=== PATIENT | male | born 1970 | race Two or more races ===

== ENCOUNTER 2019-01-14 20:20 | Inpatient (IN) | payer SELFPAY ==
[~2019-01-14] VITALS: Ht 175.3 cm; Wt 101.5 kg
[2019-01-14 20:53] LABS: Basophils # (auto) 0.1 uL; Basophils % (auto) 0.5 % (0.0-2.0); Eosinophils # (auto) 0.2 uL; Eosinophils % (auto) 1.6 % (0.0-7.0); Hematocrit 50.2 % (41.0-53.0); Hemoglobin 17.2 g/dL (13.5-17.5); Lymphocytes # (auto) 1.2 uL; Lymphocytes % (auto) 12.2 % (10.0-50.0); Mean Corpuscular Hgb Conc. 34.3 g/dL (32.0-36.0); Mean Corpuscular Volume 87.4 fL (80.0-100.0); Monocytes # (auto) 0.7 uL; Monocytes % (auto) 6.7 % (0.0-12.0); Nucleated Red Blood Cells % 0.1 %; Platelet Count (auto) 241 10^3/uL (140-450); Red Blood Cells 5.75 10^6/uL (4.5-5.90); Red Cell Distribution Width 13.5 % (11.8-14.3); White Blood Cell 10.1 10^3/uL (4.4-10.8)
[2019-01-14 21:07] LABS: Alanine Aminotransferase 55 U/L (16-61); Albumin 4.3 g/dL (3.4-5.0); Anion Gap 8 (5-15); Aspartate Aminotransferase 21 U/L (15-37); BUN/Creatinine Ratio 15.3; Blood Urea Nitrogen 15 mg/dL (7-18); Calcium 8.9 mg/dL (8.5-10.1); Carbon Dioxide 29 mmol/L (21-32); Chloride 100 mmol/L (98-107); GFR African American 106 mL/min; GFR Non-African American 88 mL/min; Glucose 119 mg/dL (74-106); Lipase 95 U/L (73-393); Magnesium 2.2 mg/dL (1.6-2.6); Potassium 3.9 mmol/L (3.5-5.1); Sodium 137 mmol/L (136-145)
[2019-01-14 21:12] LABS: Alkaline Phosphatase 84 U/L (45-117); Bilirubin, Total 0.9 mg/dL (0.2-1.0); Total Protein 8.3 g/dL (6.4-8.2)
[2019-01-14 21:16] LABS: Urine Bacteria NONE SEEN /hpf (None Seen); Urine Blood TRACE /uL (Negative); Urine Mucus FEW (None Seen); Urine Specific Gravity 1.033 (1.001-1.035); Urine WBC 1 /hpf (0 - 3)
[2019-01-14] MEDS ORDERED: ONDANSETRON HCL 4 MG/2 ML VIAL IV ONE (22:30)
[2019-01-14] MEDS ORDERED: MORPHINE SULFATE 4 MG/ML SYR/VIAL IV ONE (22:30)
[2019-01-15] MEDS ORDERED: SODIUM CHLORIDE 0.9% 500 ML IV ONE (00:35)
[2019-01-15] MEDS ORDERED: ASPirin 81 mg TAB PO ONE (01:15)
[2019-01-15] MEDS ORDERED: MORPHINE SULFATE 4 MG/ML SYR/VIAL IV ONE (01:30)
[2019-01-15] MEDS ORDERED: ONDANSETRON HCL 4 MG/2 ML VIAL IV ONE (01:30)
[2019-01-15] MEDS ORDERED: ONDANSETRON HCL 4 MG/2 ML VIAL IV PRN (02:30)
[2019-01-15] MEDS: SODIUM CHLORIDE 0.9% 1,000 ML IV SCH ×2 (02:41→15:50)
[2019-01-15] MEDS ORDERED: METOPROLOL TARTRATE 1MG/1ML-5ML VIAL IV PRN (03:00)
[2019-01-15] MEDS ORDERED: ATORVASTATIN 20 MG TAB PO ONE (03:15)
[2019-01-15] MEDS ORDERED: NITROGLYCERIN 0.4 MG SL TAB SL PRN (03:15)
[2019-01-15] MEDS ORDERED: MORPHINE SULF INJ 2 MG/ML SYRINGE 1ML IV PRN (03:15)
--- NOTE | 2019-01-15 04:30 | NUR ---
Telemetry admit from [facility] admitted to Telemetry unit after SBAR received. Patient oriented to Zulema Stewart primary RN, unit, room, bed, and unit policies regarding patient care and visiting hours. Patient now on continuous telemetry monitoring, tele box # 8 and telemetry reading on arrival to unit is sinus tachycardia. Patient placed on bedside oxygen, weighed by bedscale and encouraged to call if they need something. All questions and concerns addressed, patient verbalized understanding.
[2019-01-15 04:45] VITALS: BP 126/68
[2019-01-15] MEDS: MORPHINE SULFATE 4 MG/ML SYR/VIAL IV PRN ×4 (06:14→19:29)
--- NOTE | 2019-01-15 07:05 | NUR ---
Care endorsed to Summer KAREN.
--- NOTE | 2019-01-15 07:27 | NUR ---
Opening Note Received report from production supervisor off shift RN. Patient is awake, alert and oriented x4. Patient complains of pain in his face and throat form NG tube. Patient has NG tube on suction. Patient is on 2L NC, respirations even and unlabored. Patient denies shortness of breath at this time. Reviewed plan of care with patient, patient verbalized understanding. Patient is NPO. Bed in low and locked position, call light within reach. Will continue to monitor Q1 hour and PRN.
[2019-01-15 09:01] VITALS: BP 132/84
[2019-01-15] MEDS ORDERED: GASTROGRAFIN 120 ML SOL ONE (09:08)
--- NOTE | 2019-01-15 09:10 | NUR ---
Patient taken down for small bowel series
[2019-01-15] MEDS: ASPirin 81 mg TAB NG SCH (10:00)
--- NOTE | 2019-01-15 10:50 | NUR ---
Patient back in room Patient complaining of pain 8/10 in his face and throat. Will medicate per orders.
[2019-01-15 12:43] VITALS: BP 129/77
--- NOTE | 2019-01-15 13:55 | NUR ---
qa tech at bedside
--- NOTE | 2019-01-15 14:29 | NUR ---
Password Password undated, preacher
[2019-01-15 16:34] VITALS: BP 137/81
--- NOTE | 2019-01-15 19:25 | NUR ---
Closing Note Report given to warehouse worker 2nd shift RN. Patient complains of pain 10/10 will medicate per orders.
--- NOTE | 2019-01-15 19:45 | NUR ---
Opening Shift Note Assumed care of patient, awake and alert. No S/S of distress/SOB, no complains of pain. NGT clamped at this time. Unable to assess placement due to patient not wanting NGT to be touched. Instructed on POC and to call for assist PRN, will continue to monitor for changes Q1hr and PRN.
[2019-01-15 22:00] VITALS: BP 147/81
[2019-01-15] MEDS: ATORVASTATIN 20 MG TAB NG SCH (22:00)
--- NOTE | 2019-01-15 23:00 | NUR ---
NGT still in, but noted tape to be pulled about an inch off. Patient refused for NGT to be fixed and wants it to be left alone. Care continued.
[2019-01-16] VITALS (7 sets, daily range): BP systolic 132–155; BP diastolic 75–89
[2019-01-16 05:34] LABS: Basophils # (auto) 0 uL; Basophils % (auto) 0.4 % (0.0-2.0); Eosinophils # (auto) 0.1 uL; Eosinophils % (auto) 0.9 % (0.0-7.0); Hematocrit 46.2 % (41.0-53.0); Hemoglobin 15.7 g/dL (13.5-17.5); Lymphocytes # (auto) 1.4 uL; Lymphocytes % (auto) 15.2 % (10.0-50.0); Mean Corpuscular Hemoglobin 29.9 pg (28.0-32.0); Monocytes # (auto) 0.8 uL; Monocytes % (auto) 8.4 % (0.0-12.0); Neutrophils % (auto) 75.1 % (37.0-80.0); Platelet Count (auto) 212 10^3/uL (140-450); Red Blood Cells 5.25 10^6/uL (4.5-5.90); Red Cell Distribution Width 13.3 % (11.8-14.3); White Blood Cell 9.4 10^3/uL (4.4-10.8)
[2019-01-16 05:55] LABS: Calcium 8.3 mg/dL (8.5-10.1); Potassium 3.8 mmol/L (3.5-5.1)
[2019-01-16 05:57] LABS: BUN/Creatinine Ratio 15.6
[2019-01-16] MEDS: SODIUM CHLORIDE 0.9% 1,000 ML IV SCH ×2 (06:03→16:41)
--- NOTE | 2019-01-16 06:16 | NUR ---
NGT still in the same position and patient still refuses NGT to be touched. Report will be given to oncoming RN.
[2019-01-16] MEDS: MORPHINE SULFATE 4 MG/ML SYR/VIAL IV PRN ×5 (07:21→21:43)
--- NOTE | 2019-01-16 07:30 | NUR ---
Opening Shift Note Received report from Anna JONES. Assumed care of patient, awake and alert. No S/S of distress/SOB or pain. Reported discomfort on NGT area, noticed slightly pulled out and patient doesn't want anyone to touch it. Explained that it is hurting because it's not properly placed. Patient said "do not touch it". Instructed on POC and to call for assist PRN, will continue to monitor for changes Q1hr and PRN.
--- NOTE | 2019-01-16 08:00 | NUR ---
PATIENT ABLE TO TOLERATE CLEAR LIQUID DIET FOR BREAKFAST BUT DOES NOT WAN TO ADVANCE DIET FOR NOW. WILL CONTINUE CARE.
[2019-01-16] MEDS: ASPirin 81 mg TAB NG SCH (09:39)
--- NOTE | 2019-01-16 13:50 | NUR ---
NGT removal NGT removed per MD/[employer]OW[employer] STARCHER order following explaination and instruction to patient. Patient verbalized understanding prior to removal. Patient tolerated well.
--- NOTE | 2019-01-16 19:15 | NUR ---
Opening Shift Note Assumed care of patient, awake and alert. Family at bed side. No S/S of distress/SOB or pain. Instructed on POC and to call for assist PRN, will continue to monitor PRN.
[2019-01-16] MEDS: ATORVASTATIN 20 MG TAB NG SCH (21:41)
[2019-01-17] MEDS: MORPHINE SULFATE 4 MG/ML SYR/VIAL IV PRN ×2 (04:04→21:02)
[2019-01-17 04:59] VITALS: BP 131/75
--- NOTE | 2019-01-17 05:15 | NUR ---
ROUNDS PATIENT RESTING IN BED, NO DISTRESS NOTED WITH EVEN AND ULABORED RESPIRATION, SATURATING AT 94% ON ROOM AIR. PATIENT DENIES PAIN AT THIS TIME.
[2019-01-17] MEDS: SODIUM CHLORIDE 0.9% 1,000 ML IV SCH ×2 (05:37→21:03)
--- NOTE | 2019-01-17 07:10 | NUR ---
Opening Shift Note Received report from Amira JONES. Assumed care of patient, awake and alert. No S/S of distress/SOB. Reported managed pain today. Instructed on POC and to call for assist PRN, will continue to monitor for changes Q1hr and PRN.
[2019-01-17 08:23] VITALS: BP 135/84
[2019-01-17] MEDS: ASPirin 81 mg TAB PO SCH (09:28)
--- NOTE | 2019-01-17 11:35 | NUR ---
Dr. Guerra at bedside. Cardiology consult ff up done.
[2019-01-17 12:55] VITALS: BP 125/79
[2019-01-17 16:24] VITALS: BP 134/93
--- NOTE | 2019-01-17 19:12 | NUR ---
Opening Shift Note Received report from day shift RN, assumed care of patient. Patient awake and alert with family at bed side. No S/S of distress/SOB or pain. Instructed on POC and to call for assist PRN.
[2019-01-17 20:00] VITALS: BP 133/79
[2019-01-17] MEDS: ATORVASTATIN 20 MG TAB PO SCH (21:02)
[2019-01-17 22:17] VITALS: BP 133/79
--- NOTE | 2019-01-18 05:04 | NUR ---
ROUNDS PATIENT IS RESTING IN BED WITH EYES CLOSED, SNORING. NO DISTRESS NOTED WITH EVEN AND UNLABORED RESPIRATIONS AND SATURATING AT 95% ON ROOM AIR.
[2019-01-18 05:41] VITALS: BP 99/77
--- NOTE | 2019-01-18 07:15 | NUR ---
Opening Shift Note Received report from Amira JONES. Assumed care of patient, awake and alert. No S/S of distress/SOB or pain. For stress test tomorrow and patient is aware of it. Tolerating food well. Instructed on POC and to call for assist PRN, will continue to monitor for changes Q1hr and PRN.
[2019-01-18 08:00] VITALS: BP 131/80
[2019-01-18 08:17] VITALS: BP 129/77
[2019-01-18] MEDS: ASPirin 81 mg TAB PO SCH (09:39)
[2019-01-18] MEDS: SODIUM CHLORIDE 0.9% 1,000 ML IV SCH ×2 (09:39→22:49)
--- NOTE | 2019-01-18 10:20 | NUR ---
IV removal Noted IV leaking. IV DC'd with clean sterile technique, catheter fully intact. Pressure dressing applied to site. Patient tolerated well.
--- NOTE | 2019-01-18 10:30 | NUR ---
IV insertion New IV access obtained, via clean sterile technique by inserting gauge catheter 22 at right forearm after 2 attempts and one attempt to left upper arm gauge catheter 20 to prepare for stress test tomorrow. IV secured properly. No trauma to site. Patient tolerated well.
--- NOTE | 2019-01-18 12:40 | NUR ---
Dr. Haddad at bedside. Patient is out of room, walking at hallway.
[2019-01-18 12:48] VITALS: BP_SYST 80
--- NOTE | 2019-01-18 14:10 | NUR ---
NUTRITION ASSESSMENT NOTES Please refer to link notes of nutrition screen form filed under the intervention section of the plan of care for further details. Est. Needs: 2050 kcal to 2550 kcal (20-25 kcal/kgBW), 81 gms to 102 gms pro (0.8-1.0 gms/kgBW). Will continue to monitor pertinent labs and reassess nutrient need prn Thank you. Addendum: 01/18/19 at [address] Amended: Links added.
--- NOTE | 2019-01-18 15:20 | NUR ---
REJI GOMEZ states they want to leave the floor Against Medical Advice (AMA) to go outside and smoke. Patient encouraged to stay on floor and not smoke. Dr notified of patient's wishes. Patient advised of the risks and benefits of leaving AMA. Patient verbalized understanding and signed required AMA form.
--- NOTE | 2019-01-18 15:59 | NUR ---
PATIENT COMPLAINED OF SORE THROAT AND EAR PAIN. DR. MCKEE MADE AWARE.
--- NOTE | 2019-01-18 16:30 | NUR ---
Dr. Jacobs at bedside. Checked ear and throat of patient, swabbed throat. Sample sent to lab.
[2019-01-18 17:08] VITALS: BP 127/82
--- NOTE | 2019-01-18 19:12 | NUR ---
Opening Shift Note Assumed care of patient, awake and alert. No S/S of distress/SOB or pain. Pt is currently in bed with the rails up x2, bed is locked in the lowest position and the call light is within reach. Instructed on POC and to call for assist as needed. All concerns were addressed. Will continue to monitor.
[2019-01-18] MEDS: ATORVASTATIN 20 MG TAB PO SCH (20:41)
[2019-01-18] MEDS: MORPHINE SULFATE 4 MG/ML SYR/VIAL IV PRN (20:42)
[2019-01-18 22:00] VITALS: BP 147/86
[2019-01-19 05:00] VITALS: BP 108/64
[2019-01-19] MEDS ORDERED: THROAT LOZENGES(CEPASTAT) MT PRN (06:45)
--- NOTE | 2019-01-19 07:50 | NUR ---
RECEIVED PATIENT ALERT AND ORIENTED X4, NOT IN DISTRESS, CLEAR SOUND IN BILATERAL LUNG LOBES, RR=18 SAT=97%, SR R=68 ON TELE MONITOR, DENIED CHEST PAIN, ABDOMEN SOFT WITH ACTIVE BS, KEEP NPO FOR PENDING CARDIOLITE STRESS TEST ORDERED, LAST BM IS THIS MORNING REPORTED, SKIN INTACT WARM TO TOUCH, RADIAL AND PEDAL PULSES PALPABLE, CAP REFILL<3 SECONDS, RESTING ON BED, HEAD OF BED ELEVATED, BED ON LOW POSITION, RAILS UP X2, CALL LIGHT ON REACH, PENDING CARDIAC STRESS TEST, WILL CONTINUE MONITORING.
[2019-01-19 08:41] VITALS: BP 142/91
[2019-01-19] MEDS: MORPHINE SULFATE 4 MG/ML SYR/VIAL IV PRN ×2 (08:42→19:47)
[2019-01-19] MEDS ORDERED: ADENOSINE 85 MG in GIVE UN-DILUTED 0 ML IV STA (09:14)
--- NOTE | 2019-01-19 09:27 | NUR ---
LIGHT BREAK WAS PROVIDED ORDERED, TOLERATED WELL, STRESS TEST LAB WAS CALLED FOR FOLLOW UP FOR SCHEDULE TIME, NUCLEAR MED WILL CALL FOR UPDATES REPORTED, WAITING FOR CALL BACK, WILL CONTINUE MONITORING.
--- NOTE | 2019-01-19 10:06 | NUR ---
OUT OF THE UNITE WENT ON WC FOR STRESS TEST, WILL CONTINUE MONITORING.
[2019-01-19 10:46] VITALS: BP 141/84
--- NOTE | 2019-01-19 11:27 | NUR ---
CAME BACK FROM RADIOLOGY, TOLERATED WELL REPORTED, NOT IN DISTRESS, VS T=97.0 RR=18 SAT=98% IN RA, P=70 BF=777/87, RESTING ON BED, PAIN L=4/10 REPORTED, WILL CONTINUE MONITORING. Addendum: 01/19/19 at 1129 by Ureil Taylor RN CAME BACK FROM STRESS TEST, TOLERATED WELL REPORTED, NOT IN DISTRESS, VS T=97.0 RR=18 SAT=98% IN RA, P=70 RC=913/87, RESTING ON BED, PAIN L=4/10 REPORTED, WILL CONTINUE MONITORING.
[2019-01-19] MEDS: ASPirin 81 mg TAB PO SCH (11:39)
[2019-01-19 13:00] VITALS: BP 138/87
[2019-01-19] MEDS: SODIUM CHLORIDE 0.9% 1,000 ML IV SCH (13:10)
--- NOTE | 2019-01-19 16:53 | NUR ---
OUT OF UNIT FOR 2ND STRESS TEST AND CAME LEANNA, AMBULATED AROUND THE UNIT X7, TOLERATED 100% OF LUNCH TRAY, RESTING ON BED, NOT IN DISTRESS, DENIED PAIN, WILL CONTINUE MONITORING.
[2019-01-19 17:08] VITALS: BP 139/89
--- NOTE | 2019-01-19 19:01 | NUR ---
RESTING ON BED, NOT IN DISTRESS, DENIED PAIN, REPORT WAS GIVEN TO THE CABLE FERRY OPERATOR RN.
[2019-01-19 20:33] VITALS: BP 139/89
--- NOTE | 2019-01-19 21:50 | NUR ---
Pt DC Discharge instructions given as ordered. Encourage to follow up with PMD as instructed. All questions and concerns addressed. Patient verbalized understanding. IVs removed with catheter intact, pressure dressing applied. Telemetry unit returned to ICU. Patient self ambulated from room to vehicle with all pt belongings.
== END 2019-01-19 21:50 | disposition home or self-care (01) | DRG 206 ==
LOC: ER 20:20 → TELE-WESTW 01-15 03:01
PROVIDERS: ADMIT Nurse Practitioner; ATTEND Internal Medicine Pulmonary Disease
DX: M94.0 Chondrocostal junction syndrome [Tietze] (principal); K56.609 Unspecified intestinal obstruction, unspecified as to partial versus complete obstruction; J98.11 Atelectasis; K52.9 Noninfective gastroenteritis and colitis, unspecified; E66.9 Obesity, unspecified; I10 Essential (primary) hypertension; I45.10 Unspecified right bundle-branch block; I25.10 Atherosclerotic heart disease of native coronary artery without angina pectoris; K59.00 Constipation, unspecified; K31.89 Other diseases of stomach and duodenum; K76.0 Fatty (change of) liver, not elsewhere classified; N40.0 Benign prostatic hyperplasia without lower urinary tract symptoms; I25.2 Old myocardial infarction; Z87.891 Personal history of nicotine dependence; Z68.33 Body mass index [BMI] 33.0-33.9, adult
CPT/HCPCS: 36415; 71046; 74176; 74250; 78452; 80048; 80053; 81001; 83690; 83735; 84484; 85025; 87070; 87880; 93005; 93017; 93306; 94761; 96374; 96375; 96376; G0378; J0153; J2405